=== PATIENT | male | born 1955 | race Caucasian/White ===

== ENCOUNTER 2018-04-01 06:51 | Inpatient (IN) | payer MEDICARE, MEDICAID ==
[~2018-04-01] VITALS: Ht 165.1 cm; Wt 79.4 kg
[2018-04-01] MEDS ORDERED: ONDANSETRON HCL 4MG/2ML INJ IV STA (07:09)
[2018-04-01] MEDS ORDERED: MORPHINE SULFATE 4 MG/ML CPJ (NOT FOR IM USE) IV STA (07:09)
[2018-04-01] MEDS ORDERED: ALBUTEROL (0.083%) 2.5MG/3ML NEB HHN STA (07:09)
[2018-04-01] MEDS ORDERED: IPRATROPIUM BROMIDE (0.02%) 0.5MG/2.5ML NEB HHN STA (07:09)
[2018-04-01] MEDS ORDERED: METHYLPREDNISOLONE SOD SUCC 125 MG/2 ML VIAL IV STA (07:09)
[2018-04-01] MEDS ORDERED: MAGNESIUM 2 G PREMIX 50 ML IV ONE (07:15)
[2018-04-01] MEDS ORDERED: FUROSEMIDE 20MG/2ML VIAL IVP ONE (08:15)
[2018-04-01 08:27] LABS: HEMATOCRIT. 38.6 % (42.0-52.0); MEAN CORPUSCULAR HEMOGLOBIN 29.4 pg (28.0-32.0); MEAN CORPUSCULAR VOLUME 87.3 fL (80.0-94.0); MEAN PLATELET VOLUME 8.3 fl (7.4-10.4); PLATELET 189 x1000/uL (130-400); RED BLOOD CELL COUNT 4.42 mill/uL (4.7-6.1); RED CELL DISTRIBUTION WIDTH 17.7 % (11.6-14.6)
[2018-04-01 08:29] LABS: CHLORIDE 110 mEq/L (98-107)
[2018-04-01 08:59] LABS: PARTIAL THROMBOPLASTIN TIME 29.5 sec (23.4-31.0); PROTHROMBIN TIME 10.4 sec (9.1-11.1)
[2018-04-01 09:03] LABS: PLATELET ESTIMATE NORMAL
[2018-04-01] MEDS ORDERED: CLONIDINE 0.1MG TABLET PO PRN (10:30)
[2018-04-01] MEDS ORDERED: MAGNESIUM/ALUMINUM HYDROXIDE/SIMETHICONE 30ML UDC PO PRN (10:30)
[2018-04-01] MEDS ORDERED: DIPHENHYDRAMINE 50MG/ML VIAL IV PRN (10:30)
[2018-04-01] MEDS ORDERED: DOCUSATE SODIUM 100MG CAPSULE PO PRN (10:30)
[2018-04-01] MEDS ORDERED: NA PHOS,M-B/NA PHOS,DI-BA ENEMA 118ML PR PRN (10:30)
[2018-04-01] MEDS ORDERED: ONDANSETRON HCL 4MG/2ML INJ IV PRN (10:30)
[2018-04-01] MEDS ORDERED: TRAMADOL 50MG TABLET PO PRN (10:30)
[2018-04-01] MEDS ORDERED: NITROGLYCERIN 0.4MG TABLET SL SL PRN (10:30)
[2018-04-01] MEDS ORDERED: IPRATROPIUM/ALBUTEROL 0.5-3(2.5)MG/3ML NEB INH PRN (10:30)
[2018-04-01] MEDS ORDERED: ACETAMINOPHEN 325MG TABLET PO PRN (10:30)
[2018-04-01] MEDS ORDERED: GUAIFENESIN 200MG/10ML SUGAR FREE UDC PO PRN (10:30)
[2018-04-01] MEDS ORDERED: MORPHINE SULFATE 4 MG/ML CPJ (NOT FOR IM USE) IV ONE (13:45)
[2018-04-01] MEDS ORDERED: ONDANSETRON HCL 4MG/2ML INJ IV ONE (13:45)
[2018-04-01 16:00] VITALS: BP 111/60
[2018-04-01] MEDS: CLOPIDOGREL 75MG TABLET PO SCH (17:36)
[2018-04-01] MEDS: ENOXAPARIN 40MG/0.4ML SYR SUBCUT SCH (17:37)
[2018-04-01 19:46] LABS: CREATINE KINASE MB FRACTION 4.5 ng/mL (0.5-3.6)
[2018-04-01 19:59] VITALS: BP 117/59
[2018-04-01 20:00] VITALS: BP 104/58
[2018-04-01 20:23] VITALS: BP 104/58
[2018-04-01] MEDS: FAMOTIDINE 20MG TABLET PO SCH (21:00)
[2018-04-01] MEDS: FUROSEMIDE 40MG/4ML VIAL IVP SCH (21:00)
[2018-04-01] MEDS: SPIRONOLACTONE 25MG TABLET PO SCH (21:00)
[2018-04-01 21:35] LABS: CLARITY URINE CLEAR (CLEAR); COLOR URINE YELLOW (YELLOW); KETONES URINE NEGATIVE (NEGATIVE); LEUKOCYTE ESTERASE URINE NEGATIVE (NEGATIVE); NITRITE URINE NEGATIVE (NEGATIVE); OCCULT BLOOD URINE NEGATIVE (NEGATIVE); PROTEIN URINE 2+ (NEGATIVE); SPECIFIC GRAVITY URINE 1.017 (1.005-1.030); UROBILINOGEN URINE 0.2 E.U./dL (0.2-1.0)
[2018-04-01] MEDS: GUAIFENESIN/DM 600MG/30MG ER TAB 12HR PO SCH (21:38)
[2018-04-01] MEDS: ZOLPIDEM TARTRATE 5MG TABLET PO PRN (21:41)
[2018-04-01 22:06] LABS: *AMPHETAMINES SCREEN URINE NEGATIVE (NEGATIVE); *BARBITURATES SCREEN URINE NEGATIVE (NEGATIVE); *BENZODIAZEPINES SCREEN URINE NEGATIVE (NEGATIVE); *COCAINE SCREEN URINE NEGATIVE (NEGATIVE)
[2018-04-01 22:07] LABS: CANNABINOID URINE SCREEN NEGATIVE (NEGATIVE); METHADONE URINE SCREEN NEGATIVE (NEGATIVE); OPIATES URINE SCREEN PRESUMTIVE POSITIVE (NEGATIVE); PHENCYCLIDINE URINE SCREEN NEGATIVE (NEGATIVE)
[2018-04-02 06:53] LABS: HEMATOCRIT. 36.2 % (42.0-52.0); HEMOGLOBIN. 11.9 g/dL (14.0-18.0); MEAN CORPUSCULAR VOLUME 87.9 fL (80.0-94.0); MEAN PLATELET VOLUME 8.4 fl (7.4-10.4); PLATELET 182 x1000/uL (130-400); RED BLOOD CELL COUNT 4.11 mill/uL (4.7-6.1); RED CELL DISTRIBUTION WIDTH 17.7 % (11.6-14.6)
[2018-04-02 07:17] LABS: CHLORIDE 108 mEq/L (98-107)
[2018-04-02 07:37] LABS: CREATINE KINASE 108 IU/L (39-308); CREATINE KINASE MB FRACTION 3.8 ng/mL (0.5-3.6)
[2018-04-02 08:00] VITALS: BP 99/72
[2018-04-02] MEDS: FAMOTIDINE 20MG TABLET PO SCH ×2 (08:59→21:05)
[2018-04-02] MEDS: ASPIRIN 325MG EC TABLET PO SCH (09:00)
[2018-04-02] MEDS: CLOPIDOGREL 75MG TABLET PO SCH (09:00)
[2018-04-02] MEDS: SPIRONOLACTONE 25MG TABLET PO SCH ×2 (09:00→21:04)
[2018-04-02] MEDS: GUAIFENESIN/DM 600MG/30MG ER TAB 12HR PO SCH ×2 (09:00→21:04)
[2018-04-02] MEDS: FUROSEMIDE 40MG/4ML VIAL IVP SCH ×2 (09:04→21:03)
[2018-04-02 09:28] LABS: PLATELET ESTIMATE NORMAL
[2018-04-02] MEDS ORDERED: MORPHINE SULFATE 4 MG/ML CPJ (NOT FOR IM USE) IV NR (10:45)
[2018-04-02] MEDS ORDERED: FENTANYL CITRATE/PF 50MCG/ML 2ML VIAL ONE (10:52)
[2018-04-02] MEDS ORDERED: IODIXANOL 320MG/ML 100 ML BOTTLE IV ONE (10:52)
[2018-04-02] MEDS ORDERED: LIDOCAINE HCL 1% 20ML VIAL (Pyxis) INJ ONE (10:52)
[2018-04-02] MEDS ORDERED: MIDAZOLAM HCL 2 MG/2 ML VIAL ONE (10:52)
[2018-04-02] MEDS ORDERED: IPRATROPIUM/ALBUTEROL 0.5-3(2.5)MG/3ML NEB HHN PRN (15:30)
[2018-04-02] MEDS: NICOTINE 7MG PATCH TD SCH (16:00)
[2018-04-02] MEDS: IPRATROPIUM/ALBUTEROL 0.5-3(2.5)MG/3ML NEB HHN SCH (16:08)
[2018-04-02] MEDS ORDERED: MORPHINE SULFATE 4 MG/ML CPJ (NOT FOR IM USE) IV PRN (16:45)
[2018-04-02] MEDS: ENOXAPARIN 40MG/0.4ML SYR SUBCUT SCH (17:00)
[2018-04-02] MEDS: LORAZEPAM 2MG/ML CPJ IV PRN (18:51)
[2018-04-02 20:00] VITALS: BP 106/68
[2018-04-02] MEDS: ZOLPIDEM TARTRATE 5MG TABLET PO PRN (21:05)
[2018-04-02] MEDS: BUDESONIDE 0.5MG/2ML NEB HHN SCH (21:45)
[2018-04-03] VITALS (7 sets, daily range): BP systolic 100–113; BP diastolic 50–72
[2018-04-03] MEDS: LORAZEPAM 2MG/ML CPJ IV PRN ×4 (01:34→19:28)
[2018-04-03] MEDS: IPRATROPIUM/ALBUTEROL 0.5-3(2.5)MG/3ML NEB HHN SCH ×2 (05:10→20:39)
[2018-04-03 07:59] LABS: BASOPHILS % 0.7 % (0.0-2.0); HEMATOCRIT. 33.1 % (42.0-52.0); HEMOGLOBIN. 11.2 g/dL (14.0-18.0); LYMPHOCYTES % 15.3 % (20.0-50.0); MEAN CORPUSCULAR HEMOGLOBIN 29.8 pg (28.0-32.0); MEAN CORPUSCULAR VOLUME 88.5 fL (80.0-94.0); MEAN PLATELET VOLUME 8.7 fl (7.4-10.4); MONOCYTES % 8.4 % (2.0-8.0); NEUTROPHILS % 74.6 % (40.0-76.0); PLATELET 144 x1000/uL (130-400); RED BLOOD CELL COUNT 3.74 mill/uL (4.7-6.1); RED CELL DISTRIBUTION WIDTH 17.9 % (11.6-14.6)
[2018-04-03 08:17] LABS: CHLORIDE 105 mEq/L (98-107)
[2018-04-03] MEDS: ASPIRIN 325MG EC TABLET PO SCH (09:00)
[2018-04-03] MEDS: NICOTINE 7MG PATCH TD SCH (09:00)
[2018-04-03] MEDS: SPIRONOLACTONE 25MG TABLET PO SCH ×2 (09:00→21:29)
[2018-04-03] MEDS: FUROSEMIDE 40MG/4ML VIAL IVP SCH ×2 (09:00→21:29)
[2018-04-03] MEDS: FAMOTIDINE 20MG TABLET PO SCH (09:00)
[2018-04-03] MEDS: LORAZEPAM 1MG TABLET PO SCH ×2 (09:00→17:33)
[2018-04-03] MEDS: GUAIFENESIN/DM 600MG/30MG ER TAB 12HR PO SCH ×2 (09:59→21:28)
[2018-04-03] MEDS: CLOPIDOGREL 75MG TABLET PO SCH (09:59)
[2018-04-03] MEDS: METHYLPREDNISOLONE SOD SUCC 40 MG/ML VIAL IV SCH ×2 (11:39→21:29)
[2018-04-03] MEDS: ENOXAPARIN 40MG/0.4ML SYR SUBCUT SCH (17:40)
[2018-04-03] MEDS: BUDESONIDE 0.5MG/2ML NEB HHN SCH (20:35)
[2018-04-03] MEDS ORDERED: ATORVASTATIN CALCIUM 20MG TABLET PO SCH (21:00)
[2018-04-04] VITALS: BP 127/62
[2018-04-04] MEDS: LORAZEPAM 2MG/ML CPJ IV PRN (01:26)
[2018-04-04] MEDS: IPRATROPIUM/ALBUTEROL 0.5-3(2.5)MG/3ML NEB HHN SCH ×2 (01:51→06:00)
[2018-04-04 04:00] VITALS: BP 112/70
[2018-04-04] MEDS: BUDESONIDE 0.5MG/2ML NEB HHN SCH (06:00)
[2018-04-04 07:55] LABS: HEMATOCRIT. 35.1 % (42.0-52.0); HEMOGLOBIN. 11.8 g/dL (14.0-18.0); MEAN CORPUSCULAR HEMOGLOBIN 29.6 pg (28.0-32.0); MEAN PLATELET VOLUME 8.9 fl (7.4-10.4); PLATELET 165 x1000/uL (130-400); RED BLOOD CELL COUNT 3.99 mill/uL (4.7-6.1); RED CELL DISTRIBUTION WIDTH 17.8 % (11.6-14.6)
[2018-04-04] MEDS: LORAZEPAM 1MG TABLET PO SCH (08:03)
[2018-04-04] MEDS: CLOPIDOGREL 75MG TABLET PO SCH (08:03)
[2018-04-04] MEDS: METHYLPREDNISOLONE SOD SUCC 40 MG/ML VIAL IV SCH (08:04)
[2018-04-04] MEDS: FUROSEMIDE 40MG/4ML VIAL IVP SCH (08:04)
[2018-04-04] MEDS: ASPIRIN 325MG EC TABLET PO SCH (08:04)
[2018-04-04 08:26] VITALS: BP 122/90
[2018-04-04] MEDS ORDERED: FAMOTIDINE 20MG TABLET PO SCH (09:00)
[2018-04-04 09:49] LABS: CHLORIDE 106 mEq/L (98-107)
[2018-04-04] MEDS: GUAIFENESIN/DM 600MG/30MG ER TAB 12HR PO SCH (10:16)
[2018-04-04] MEDS: SPIRONOLACTONE 25MG TABLET PO SCH (10:16)
[2018-04-04] MEDS: NICOTINE 7MG PATCH TD SCH (10:17)
[2018-04-04 10:52] LABS: PLATELET ESTIMATE NORMAL
[2018-04-04 12:46] VITALS: BP 118/75
[2018-04-04 13:15] VITALS: BP 118/75
== END 2018-04-04 14:25 | DRG 291 ==
LOC: ER 06:51 → 6WST 08:08 → EDBEDREQ 08:14 → SUPCPDRO 10:20 → ENRESERV 14:43
PROVIDERS: ADMIT Internal Medicine; ATTEND Internal Medicine
DX: I50.43 Acute on chronic combined systolic (congestive) and diastolic (congestive) heart failure (principal); J96.00 Acute respiratory failure, unspecified whether with hypoxia or hypercapnia; J44.1 Chronic obstructive pulmonary disease with (acute) exacerbation; I25.10 Atherosclerotic heart disease of native coronary artery without angina pectoris; I48.91 Unspecified atrial fibrillation; I25.5 Ischemic cardiomyopathy; H54.62 Unqualified visual loss, left eye, normal vision right eye; R07.89 Other chest pain; N28.9 Disorder of kidney and ureter, unspecified; F41.9 Anxiety disorder, unspecified; D64.9 Anemia, unspecified; F32.9 Major depressive disorder, single episode, unspecified; F17.210 Nicotine dependence, cigarettes, uncomplicated; Z79.02 Long term (current) use of antithrombotics/antiplatelets; Z80.42 Family history of malignant neoplasm of prostate; Z95.810 Presence of automatic (implantable) cardiac defibrillator; Z95.5 Presence of coronary angioplasty implant and graft; Z88.8 Allergy status to other drugs, medicaments and biological substances; Z71.6 Tobacco abuse counseling
CPT/HCPCS: 36415; 71045; 80061; 80305; 82550; 82553; 83036; 83735; 83880; 84443; 84484; 85379; 93005; 93306; 93970; 94640; 96365; 96366; 96375; 99291; J1644; J1650; J1940; J2060; J2250; J2270; J2405; J2920; J2930; J3010; J3475; J3490; J7611; J7620; J7626; Q9967